=== PATIENT | male | born 1990 | race African-American/Black ===

== ENCOUNTER 2016-07-09 16:35 | Emergency (ER) | payer SELFPAY ==
[~2016-07-09] VITALS: Ht 175.3 cm; Wt 63.5 kg
[2016-07-09 16:49] VITALS: BP 131/73
== END 2016-07-09 17:30 | disposition left against medical advice (07) ==
LOC: ER 16:35
DX: R10.30 Lower abdominal pain, unspecified (principal); Z53.21 Procedure and treatment not carried out due to patient leaving prior to being seen by health care provider